=== PATIENT | male | born 1945 | race Caucasian/White ===

== ENCOUNTER 2017-05-11 22:59 | Inpatient (IN) | payer OTHER, MEDICARE ==
[2017-05-12 00:49] VITALS: RESP 18
[2017-05-12] MEDS ORDERED: ACETAMINOPHEN TAB 325 MG TAB PO PRN (01:52)
[2017-05-12] MEDS ORDERED: ONDANSETRON 4 MG/2 ML VIAL IVP PRN (01:53)
[2017-05-12] MEDS: SODIUM CHLORIDE 0.9% 1,000 ML IV SCH ×2 (02:24→13:13)
[2017-05-12 06:39] LABS: Basophils % (A) 1 %; CH 31.7; CHCM 34.3; Eosinophils % (A) 1 %; HCT 40.3 % (39.0-53.0); HDW 2.49; HGB 13.6 gm/dL (13.0-17.5); Luc # (Auto) 0.22; Luc % (Auto) 4; Lymphocytes # (A) 1.4 k/uL (1.0-4.8); Lymphocytes % (A) 22 %; MCH 31.3 pg (25.0-35.0); MCHC 33.7 g/dL (31.0-37.0); Mean Platelet Volume 6.9; Monocytes # (A) 0.6 k/uL (0-1.0); Monocytes % (A) 10 %; Neutrophils % (A) 63 %; RBC 4.33 m/uL (4.30-5.90); WBC 6.2 k/uL (3.8-10.6); WBC (Perox) 6.41
[2017-05-12 06:51] LABS: Anion Gap 7 mmol/L; Blood Urea Nitrogen 20 mg/dL (9-20); Calcium 8.5 mg/dL (8.4-10.2); Carbon Dioxide 24 mmol/L (22-30); Chloride 106 mmol/L (98-107); Glucose 92 mg/dL (74-99); Non-African American GFR(MDRD) >60 (>60 ml/min/1.73 sqM); Potassium 3.9 mmol/L (3.5-5.1); Sodium 137 mmol/L (137-145)
[2017-05-12 09:50] VITALS: PULSE 70; TEMP 97.4
--- NOTE | 2017-05-12 10:20 | P.CRDCN ---
History of Present Illness Consult date: 05/12/17 Requesting physician: Wanda Lepe Reason for Consult (text): Syncope Chief complaint: Near syncope, diaphoresis, nausea History of present illness: This is a pleasant 71-year-old gentleman with history of thyroidism, hypertension, hyperlipidemia and BPH. He presented to [facility] with complaints of dizziness, near syncope, nausea and diaphoresis. According to the patient he had been working outside all day without eating and was not staying well-hydrated. He previously was on prazosin 2 mg at bedtime. Taking this secondary to side effects. He apparently took one tablet yesterday as he been having difficulty with urination. He took a shower and sat down at the table to eat dinner when he became extremely dizzy and diaphoretic as well as nauseous. He stood to get a fan and became even more dizzy and nearly passed out. He sat back down and his checked his blood pressure which read in the 70s so she called 911. A subsequent blood pressure check at home showed blood pressure of 64/48. Orthostatic blood pressures were positive at [facility]. He was sent here to [facility] [place] for further evaluation. EKG showed sinus rhythm with a right bundle branch block. Laboratory values showed a creatinine of 1.4, troponin negative, TSH elevated at 19.559 and a T4 of 1. Underwent computed tomography scan of the brain that showed no intracranial hemorrhage, abnormal mass, fluid collection, mass effect or midline shift. Patient has been receiving IV fluids at 100 mL an hour. His prazosin has been discontinued and his lisinopril is also on hold. Blood pressures this morning showed a supine blood pressure of 111/58, sitting 109/67 and a standing blood pressure of 104/62. No episodes of bradycardia or tachycardia on telemetry. Upon examination, patient is resting comfortably in bed. He denies further complaints of dizziness, near syncope, nausea or diaphoresis. He's had no chest discomfort. Past Medical History Past Medical History: GERD/Reflux, Hyperlipidemia, Hypertension, Prostate Disorder, Thyroid Disorder History of Any Multi-Drug Resistant Organisms: None Reported Past Surgical History: Adenoidectomy, Tonsillectomy Additional Past Surgical History / Comment(s): finger surgery, elbow surgery Past Anesthesia/Blood Transfusion Reactions: No Reported Reaction Past Psychological History: No Psychological Hx Reported Smoking Status: Never smoker - Past Family History Father Family Medical History: Coronary Artery Disease (CAD) Additional Family Medical History / Comment(s): "whole in heart" Mother Family Medical History: Cancer Additional Family Medical History / Comment(s): colon ca, brain ca Brother(s) Additional Family Medical History / Comment(s): one brother had esophageal ca the other brother has a pacemaker Medications and Allergies Home Medications Medication Instructions Recorded Confirmed Type Budesonide/Formoterol Fumarate 1 puff INHALATION RT-BID 05/12/17 05/12/17 History [Symbicort 160-4.5 Mcg Inhaler] Levothyroxine Sodium [Synthroid] 125 mcg PO DAILY 05/12/17 05/12/17 History Lisinopril [Zestril] 10 mg PO DAILY 05/12/17 05/12/17 History Omeprazole 20 mg PO DAILY 05/12/17 05/12/17 History Prazosin [Minipress] 2 mg PO HS 05/12/17 05/12/17 History Simvastatin [Zocor] 40 mg PO HS 05/12/17 05/12/17 History Allergies Allergy/AdvReac Type Severity Reaction Status Date / Time prazosin AdvReac sweating & Verified 05/12/17 07:54 blurred vision Physical Exam Vitals: Vital Signs Temp Pulse Resp BP BP BP BP 05/12/17 08:00 97.4 F L 70 18 108/61 05/12/17 06:08 97 F L 63 18 109/67 104/62 111/58 05/12/17 01:30 96.3 F L 70 18 116/70 05/12/17 00:44 96.3 F L 70 18 116/70 Pulse Ox 05/12/17 08:00 97 05/12/17 06:08 95 05/12/17 01:30 97 05/12/17 00:44 97 Intake and Output 05/11/17 05/12/17 05/12/17 22:59 06:59 14:59 Intake Total 500 240 Output Total 200 Balance 300 240 Intake: Intake, IV Titration 500 Amount Sodium Chloride 0.9% 1, 500 000 ml @ 100 mls/hr IV . Q10H [facility] Rx#:[id number] Oral 240 Output: Urine 200 Other: Weight 102.8 kg PHYSICAL EXAMINATION: HEENT: Head is atraumatic, normocephalic. Pupils equal, round. Neck is supple. There is no elevated jugular venous pressure. HEART EXAMINATION: Heart sounds regular, S1 and S2 normal. No murmur or gallop heard. CHEST EXAMINATION: Lungs are clear to auscultation and precussion. No chest wall tenderness is noted on palpation or with deep breathing. ABDOMEN: Soft, nontender. Bowel sounds are heard. No organomegaly noted. EXTREMITIES: 2+ peripheral pulses with no evidence of peripheral edema and no calf tenderness noted. NEUROLOGIC patient is awake, alert and oriented x3. . Results 05/12/17 05:53 05/12/17 05:53 CBC 05/12/17 Range/Units 05:53 WBC 6.2 (3.8-10.6) k/uL RBC 4.33 (4.30-5.90) m/uL Hgb 13.6 (13.0-17.5) gm/dL Hct 40.3 (39.0-53.0) % Plt Count 215 (150-450) k/uL Comprehensive Metabolic Panel 05/12/17 Range/Units 05:53 Sodium 137 (137-145) mmol/L Potassium 3.9 (3.5-5.1) mmol/L Chloride 106 (98-107) mmol/L Carbon Dioxide 24 (22-30) mmol/L BUN 20 (9-20) mg/dL Creatinine 1.00 (0.66-1.25) mg/dL Glucose 92 (74-99) mg/dL Calcium 8.5 (8.4-10.2) mg/dL Current Medications Generic Name Dose Route Start Last Admin Trade Name Freq PRN Reason Stop Dose Admin Acetaminophen 650 mg 05/12/17 01:52 Tylenol Tab PO Q6HR PRN Fever and/ or Pain Sodium Chloride 1,000 mls @ 100 mls/hr 05/12/17 02:00 05/12/17 02:24 Saline 0.9% IV 100 mls/hr .Q10H [facility] Administration Ondansetron HCl 4 mg 05/12/17 01:53 Zofran IVP Q6HR PRN Nausea And Vomiting Intake and Output 05/11/17 05/12/17 05/12/17 22:59 06:59 14:59 Intake Total 500 240 Output Total 200 Balance 300 240 Intake: Intake, IV Titration 500 Amount Sodium Chloride 0.9% 1, 500 000 ml @ 100 mls/hr IV . Q10H [facility] Rx#:[id number] Oral 240 Output: Urine 200 Other: Weight 102.8 kg 05/12/17 05:53 05/12/17 05:53 EKG Interpretations (text) Sinus rhythm with a right bundle branch block Assessment and Plan Plan: Assessment and plan #1 near syncope likely secondary to hypotension #2 hypotension #3 history of hypertension #4 history of BPH, on prazosin #5 hypothyroidism #6 hyperlipidemia From cardiology's perspective, echocardiogram was reviewed and shows normal LV systolic function with an ejection fraction of 55-60% without any significant valvular abnormalities. Discontinue prazosin. From our perspective, patient may be discharged home today. SENIOR ACCOUNTING ASSOCIATE note has been reviewed, I agree with a documented findings and plan of care. Patient was seen and examined.
--- NOTE | 2017-05-12 10:56 | ECHOF ---
Referral Reason:syncope MEASUREMENTS -------- HEIGHT: 188.0 cm WEIGHT: 100.7 kg BP: 111/58 RVIDd: 3.3 cm (< 3.3) IVSd: 1.2 cm (0.6 - 1.1) LVIDd: 4.4 cm (3.9 - 5.3) LVPWd: 1.1 cm (0.6 - 1.1) IVSs: 1.8 cm LVIDs: 2.4 cm LVPWs: 1.4 cm LA Diam: 3.5 cm (2.7 - 3.8) LAESV Index (A-L): 29.72 ml/m Ao Diam: 3.3 cm (2.0 - 3.7) AV Cusp: 2.2 cm (1.5 - 2.6) MV EXCURSION: 17.007 mm (> 18.000) MV EF SLOPE: 135 mm/s (70 - 150) EPSS: 0.4 cm MV E Best: 0.91 m/s MV DecT: 262 ms MV A Best: 0.82 m/s MV E/A Ratio: 1.10 RAP: 5.00 mmHg RVSP: 30.53 mmHg FINDINGS -------- Sinus rhythm. This was a technically good study. The left ventricular size is normal. There is borderline concentric left ventricular hypertrophy. Overall left ventricular systolic function is normal with, an EF between 55 - 60 %. The right ventricle is mildly enlarged. LA is midly dilated 29-33ml/m2. The right atrium is normal in size. The aortic valve is trileaflet and appears structurally normal. Mild mitral annular calcification present. Mild tricuspid regurgitation present. Right ventricular systolic pressure is normal at < 35 mmHg. Trace/mild (physiologic) pulmonic regurgitation. The aortic root size is normal. The inferior vena cava is mildly dilated. There is no pericardial effusion. CONCLUSIONS -------- 1. Sinus rhythm. 2. Mild mitral annular calcification present. 3. Mild tricuspid regurgitation present. 4. Right ventricular systolic pressure is normal at < 35 mmHg. 5. Trace/mild (physiologic) pulmonic regurgitation. 6. The aortic root size is normal. 7. The inferior vena cava is mildly dilated. 8. There is no pericardial effusion. 9. This was a technically good study. 10. The left ventricular size is normal. 11. There is borderline concentric left ventricular hypertrophy. 12. Overall left ventricular systolic function is normal with, an EF between 55 - 60 %. 13. The right ventricle is mildly enlarged. 14. LA is midly dilated 29-33ml/m2. 15. The right atrium is normal in size. 16. The aortic valve is trileaflet and appears structurally normal. TRAFFIC COUNTER: Tiny Sung RDCS
--- NOTE | 2017-05-12 12:59 | P.HPIM ---
History of Present Illness Patient was on [age]-year-old man came in with the complaints of dizziness and diaphoresis never had any syncopal episode patient had an echocardiogram here which is essentially within normal limits. Patient was a valid by cardiology EKGs essentially within normal limits patient was started on prazosin for his benign prostatic hypertrophy about couple days ago and since taking that medication patient has been lightheaded. And patient had similar symptoms in the past because of which she stopped taking prazosin. Patient's symptoms resolved at this point of time patient was found to be hypotensive with orthostatic vitals positive patient's T4 is essentially within normal limits. Next Patient's prazosin will be discontinued and patient instead will be started on tamsulosin and the lisinopril with disc and urine as well patient was asked to check the blood pressure at home twice a day and the patient was counseled regarding appropriate way to check blood pressure at home and take it to primary doctor Review of Systems REVIEW OF SYSTEMS: CONSTITUTIONAL: No fever, no malaise, no fatigue. HEENT: No recent visual problems or hearing problems. Denied any sore throat. CARDIOVASCULAR: No chest pain, orthopnea, PND, no palpitations, no syncope. PULMONARY: No shortness of breath, no cough, no hemoptysis. GASTROINTESTINAL: No diarrhea, no nausea, no vomiting, no abdominal pain. Normoactive bowel sounds. NEUROLOGICAL: No headaches, no weakness, no numbness. HEMATOLOGICAL: Denies any bleeding or petechiae. GENITOURINARY: Denies any burning micturition, frequency, or urgency. MUSCULOSKELETAL/RHEUMATOLOGICAL: Denies any joint pain, swelling, or any muscle pain. ENDOCRINE: Denies any polyuria or polydipsia. The rest of the 14-point review of systems is negative. Past Medical History Past Medical History: GERD/Reflux, Hyperlipidemia, Hypertension, Prostate Disorder, Thyroid Disorder History of Any Multi-Drug Resistant Organisms: None Reported Past Surgical History: Adenoidectomy, Tonsillectomy Additional Past Surgical History / Comment(s): finger surgery, elbow surgery Past Anesthesia/Blood Transfusion Reactions: No Reported Reaction Past Psychological History: No Psychological Hx Reported Smoking Status: Never smoker - Past Family History Father Family Medical History: Coronary Artery Disease (CAD) Additional Family Medical History / Comment(s): "whole in heart" Mother Family Medical History: Cancer Additional Family Medical History / Comment(s): colon ca, brain ca Brother(s) Additional Family Medical History / Comment(s): one brother had esophageal ca the other brother has a pacemaker Medications and Allergies Home Medications Medication Instructions Recorded Confirmed Type Budesonide/Formoterol Fumarate 1 puff INHALATION RT-BID 05/12/17 05/12/17 History [Symbicort 160-4.5 Mcg Inhaler] Levothyroxine Sodium [Synthroid] 125 mcg PO DAILY 05/12/17 05/12/17 History Omeprazole 20 mg PO DAILY 05/12/17 05/12/17 History Simvastatin [Zocor] 40 mg PO HS 05/12/17 05/12/17 History Tamsulosin [Flomax] 0.4 mg PO DAILY #30 cap 05/12/17 Rx Allergies Allergy/AdvReac Type Severity Reaction Status Date / Time prazosin AdvReac sweating & Verified 05/12/17 07:54 blurred vision Physical Exam Vitals: Vital Signs Temp Pulse Resp BP BP BP BP 05/12/17 08:00 97.4 F L 70 18 108/61 05/12/17 06:08 97 F L 63 18 109/67 104/62 111/58 05/12/17 01:30 96.3 F L 70 18 116/70 05/12/17 00:44 96.3 F L 70 18 116/70 Pulse Ox 05/12/17 08:00 97 05/12/17 06:08 95 05/12/17 01:30 97 05/12/17 00:44 97 Intake and Output 05/11/17 05/12/17 05/12/17 22:59 06:59 14:59 Intake Total 500 240 Output Total 200 400 Balance 300 -160 Intake: Intake, IV Titration 500 Amount Sodium Chloride 0.9% 1, 500 000 ml @ 100 mls/hr IV . Q10H [facility] Rx#:[id number] Oral 240 Output: Urine 200 400 Other: Weight 102.8 kg PHYSICAL EXAMINATION: GENERAL: The patient is alert and oriented x3, not in any acute distress. Well developed, well nourished. HEENT: Pupils are round and equally reacting to light. EOMI. No scleral icterus. No conjunctival pallor. Normocephalic, atraumatic. No pharyngeal erythema. No thyromegaly. CARDIOVASCULAR: S1 and S2 present. No murmurs, rubs, or gallops. PULMONARY: Chest is clear to auscultation, no wheezing or crackles. ABDOMEN: Soft, nontender, nondistended, normoactive bowel sounds. No palpable organomegaly. MUSCULOSKELETAL: No joint swelling or deformity. EXTREMITIES: No cyanosis, clubbing, or pedal edema. NEUROLOGICAL: Gross neurological examination did not reveal any focal deficits. SKIN: No rashes. Results CBC & Chem 7: 05/12/17 05:53 05/12/17 05:53 Thrombosis Risk Factor Assmnt - Choose All That Apply Each Risk Factor Represents 2 Points: Age 61-74 years Thrombosis Risk Factor Assessment Total Risk Factor Score: 2 Thrombosis Risk Factor Assessment Level: Low Risk Assessment and Plan Plan: #1 dizziness, near syncopal episode: All the workup is negative, secondary to prazosin further management of for a benign prostatic hypertrophy mentioned above. #2 gastroesophageal reflux disease #3 hypertension 4 benign prostatic hypertrophy Management of his chronic medical problems like hypertension benign prostatic hypertrophy as mentioned in the HPI itself
--- NOTE | 2017-05-12 13:00 | P.DS ---
Providers Date of admission: 05/12/17 00:38 Attending physician: Wanda Lepe Consults: 05/12/17 01:49 Consult Physician Routine Consulting Provider: Nu Oro Consult Reason/Comments: syncope Do you want consulting provider notified?: Yes Primary care physician: Stated None Hospital Course: Please refer to my history of present illness Plan - Discharge Summary New Discharge Prescriptions: New Tamsulosin [Flomax] 0.4 mg PO DAILY #30 cap Discontinued Prazosin [Minipress] 2 mg PO HS Lisinopril [Zestril] 10 mg PO DAILY No Action Budesonide/Formoterol Fumarate [Symbicort 160-4.5 Mcg Inhaler] 1 puff INHALATION RT-BID Simvastatin [Zocor] 40 mg PO HS Omeprazole 20 mg PO DAILY Levothyroxine Sodium [Synthroid] 125 mcg PO DAILY Discharge Medication List Budesonide/Formoterol Fumarate [Symbicort 160-4.5 Mcg Inhaler] 1 puff INHALATION RT-BID 05/12/17 [History] Levothyroxine Sodium [Synthroid] 125 mcg PO DAILY 05/12/17 [History] Omeprazole 20 mg PO DAILY 05/12/17 [History] Simvastatin [Zocor] 40 mg PO HS 05/12/17 [History] Tamsulosin [Flomax] 0.4 mg PO DAILY #30 cap 05/12/17 [Rx] Follow up Appointment(s)/Referral(s): Hunter Tilley MD [STAFF PHYSICIAN] - 3 Weeks Discharge Disposition: HOME SELF-CARE
[2017-05-12 13:14] VITALS: BP 118/72
[2017-05-12] MEDS ORDERED: SYMBICORT 160-4.5 MCG INHALER INHALATION SCH (20:00)
[2017-05-12] MEDS ORDERED: ATORVASTATIN 20 MG TAB PO SCH (21:00)
[2017-05-13] MEDS ORDERED: LEVOTHYROXINE 125 MCG TAB PO SCH (06:30)
[2017-05-13] MEDS ORDERED: PANTOPRAZOLE 40 MG TABLET PO SCH (07:30)
== END 2017-05-12 18:41 | disposition home or self-care (01) | DRG 149 ==
LOC: 6SEL 05-12 00:38
PROVIDERS: ADMIT Internal Medicine; ATTEND Internal Medicine
DX: R42 Dizziness and giddiness (principal); I45.10 Unspecified right bundle-branch block; I10 Essential (primary) hypertension; R55 Syncope and collapse; E03.9 Hypothyroidism, unspecified; T44.6X5A Adverse effect of alpha-adrenoreceptor antagonists, initial encounter; E78.5 Hyperlipidemia, unspecified; K21.9 Gastro-esophageal reflux disease without esophagitis; N40.0 Benign prostatic hyperplasia without lower urinary tract symptoms; Z79.899 Other long term (current) drug therapy; Z88.8 Allergy status to other drugs, medicaments and biological substances; Z82.49 Family history of ischemic heart disease and other diseases of the circulatory system; Y92.009 Unspecified place in unspecified non-institutional (private) residence as the place of occurrence of the external cause
CPT/HCPCS: 80048; 84439; 85025; 93306